=== PATIENT | female | born 1995 | race Caucasian/White ===

== ENCOUNTER 2018-03-22 09:54 | Emergency (ER) | payer OTHER ==
[2018-03-22 10:33] LABS: URINE PH (Dip) POC 6.5 (5.0-8.5)
[2018-03-22 10:33] LABS: URINE BLOOD (Dip) POC Trace-intact (NEGATIVE); URINE GLUCOSE (Dip) POC Negative (NEGATIVE); URINE KETONES (Dip) POC Negative (NEGATIVE); URINE LEUKOCYTE EST (Dip) POC Negative (NEGATIVE); URINE NITRITE (Dip) POC Negative (NEGATIVE); URINE TOTAL PROTEIN POC Negative (NEGATIVE)
[2018-03-22] MEDS: AZITHROMYCIN 250 MG TAB PO (10:38)
== END 2018-03-22 11:05 | disposition home or self-care (01) ==
LOC: FTE 09:54
DX: N72 Inflammatory disease of cervix uteri (principal)
CPT/HCPCS: 81003; 81025; 87591; 99283

== ENCOUNTER 2018-03-29 08:43 | Emergency (ER) | payer OTHER | END 2018-03-29 09:55 | disposition home or self-care (01) | LOC: FTE 08:43 | DX: Z00.00 Encounter for general adult medical examination without abnormal findings (principal) | CPT/HCPCS: 99282; Z7502 ==

== ENCOUNTER 2019-07-06 12:21 | Emergency (ER) | payer OTHER | END 2019-07-06 14:03 | disposition home or self-care (01) | LOC: FTE 12:21 | DX: J03.90 Acute tonsillitis, unspecified (principal) | CPT/HCPCS: 99283; Z7502 ==